=== PATIENT | female | born 1985 | race Two or more races ===

== ENCOUNTER → 2017-02-25 | Emergency (ER) | payer OTHER ==
[~2017-02-25] MED LIST: ACETAMINOPHEN 1000 MG/100 ML VIAL (NON FORMULARY) IVPB ONE; ACETAMINOPHEN INJECTION 100 ML IVPB ONE; DEXAMETHASONE SOD PHOSPHATE 10 MG/1 ML VIAL IVPUSH ONE; DEXAMETHASONE SOD PHOSPHATE 10 MG/1 ML VIAL ONE; SODIUM CHLORIDE 0.9% 1000 ML INFUS.BAG IV ONE
[2017-02-25 20:54] VITALS: BP 128/66; PULSE 74; TEMP 98.1; BMI 32.1
[2017-02-25 21:23] LABS: URINE APPEARANCE CLEAR; URINE BILIRUBIN NEGATIVE (NEGATIVE); URINE BLOOD NEGATIVE (NEGATIVE); URINE COLOR LTYELLOW; URINE GLUCOSE (UA) NEGATIVE (NEGATIVE); URINE KETONE NEGATIVE (NEGATIVE); URINE LEUK ESTERASE NEGATIVE (NEGATIVE); URINE NITRITE NEGATIVE (NEGATIVE); URINE PROTEIN NEGATIVE (NEGATIVE); URINE UROBILINOGEN NEGATIVE E.U./dl (0.2-1.0)
[2017-02-25 22:35] LABS: BASOPHIL 0.7 % (0-2.0); EOSINOPHIL 3.4 % (0-4.5); MCH 25.6 pg (25.7-33.7); MCHC 32.6 g/dl (32.0-36.0); MEAN CELL VOLUME 78.6 fl (80-96); MEAN PLT VOLUME 9.1 fl (7.5-11.1); NEUTROPHILS 60.2 % (42.8-82.8); PLATELET COUNT 207 K/MM3 (134-434); WHITE BLOOD COUNT 10.4 K/mm3 (4.0-10.0)
[2017-02-25 22:59] LABS: ALBUMIN 3.6 g/dl (3.4-5.0); ANION GAP 8 (8-16); BILIRUBIN,TOTAL 0.3 mg/dL (0.2-1.0); CALCIUM 9.1 mg/dL (8.5-10.1); CO2 25 mmol/L (21-32); CREATININE 0.7 mg/dL (0.55-1.02); GLUCOSE,RANDOM 101 mg/dL (74-106); SGOT/AST 21 U/L (15-37); SGPT/ALT 30 U/L (12-78); TOT PROT 7.1 g/dl (6.4-8.2)
[2017-02-25 23:00] LABS: ALK PHOS 96 U/L (45-117)
--- NOTE | 2017-02-26 02:37 | PDOC ---
History of Present Illness - General Chief Complaint: Pain, Acute Stated Complaint: PAIN IN STOMACH Time Seen by Provider: 02/25/17 21:33 - History of Present Illness Initial Comments: 02/26/17 03:31 CHIEF COMPLAINT: abd pain HISTORY OF PRESENT ILLNESS: 31 yo F with no PMH presents to ED with RLQ abdominal pain x 2 months. She reports going to [facility] where she had a negative CT scan but that the doctor told her "sometimes the CT can miss an appendicitis." She was given Tylenol with codeine for her pain but when she took it today she broke out into a rash. She denies any difficulty breathing or any swelling of the mouth, lips, throat, or tongue. Patient states she vomited twice yesterday along with her abdominal pain. No recent travel or sick contacts. PAST MEDICAL HISTORY: Denies past medical history FAMILY HISTORY: Denies SOCIAL HISTORY: Current smoker, 10 cigarettes daily. Denies alcohol, illicit drug use. SURGICAL HISTORY: 3 c-sections ALLERGIES: codeine REVIEW OF SYSTEMS General/Constitutional: Denies fever or chills. Denies weakness, weight change. HEENT: Denies change in vision. Denies ear pain or discharge. Denies sore throat. Cardiovascular: Denies chest pain or shortness of breath. Respiratory: Denies cough, wheezing, or hemoptysis. Gastrointestinal: RLQ abodminal pain x 2 months. Denies nausea, vomiting, diarrhea or constipation. Denies rectal bleeding. Genitourinary: Denies dysuria, frequency, or change in urination. Musculoskeletal: Denies joint or muscle swelling or pain. Denies neck or back pain. Skin and breasts: Denies rash or easy bruising. Neurologic: Denies headache, vertigo, loss of consciousness, or loss of sensation. PHYSICAL EXAM General Appearance: Well-appearing, appropriately dressed. No apparent distress. HEENT: EOMI, PERRLA, normal ENT inspection, normal voice, TMs normal, pharynx normal. No conjunctival pallor. No photophobia, scleral icterus. Respiratory/Chest: Lungs CTAB. Cardiovascular: RRR. S1, S2. Gastrointestinal/Abdominal: Marked tenderness and guarding to RLQ at McBurney's point. Normal bowel sounds. Abdomen soft, non-distended. No organomegaly, pulsatile mass, guarding, hernia, hepatomegaly, splenomegaly. Lymphatic: No adenopathy, tenderness. Musculoskeletal/Extremities: Normal inspection. FROM of all extremities, normal capillary refill. Pelvis Stable. No CVA tenderness. No tenderness to extremities, pedal edema, swelling, erythema or deformity. Integumentary: Appropriate color, dry, warm. 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 Fully oriented, alert. Appropriate mood/affect. Motor strength 5/5. No appreciable EOM palsy, facial droop or sensory deficit. Past History - Past Medical History Allergies/Adverse Reactions: Allergies Allergy/AdvReac Type Severity Reaction Status Date / Time codeine Allergy Verified 02/25/17 20:45 Home Medications: Ambulatory Orders NK [No Known Home Medication] 02/25/17 Suicide Attempt (Hx): No - Psycho/Social/Smoking Cessation Hx Suicidal Ideation: No Smoking History: Former smoker Have you smoked in the past 12 months: No Number of Cigarettes Smoked Daily: 10 Information on smoking cessation initiated: No 'Breaking Loose' booklet given: 04/25/15 Hx Alcohol Use: No Drug/Substance Use Hx: No *Physical Exam - Vital Signs Last Vital Signs Temp Pulse Resp BP Pulse Ox 98.1 F 74 18 128/66 100 02/25/17 20:48 02/25/17 20:48 02/25/17 20:48 02/25/17 20:48 02/25/17 20:48 ED Treatment Course - LABORATORY CBC & Chemistry Diagram: 02/25/17 22:24 02/25/17 22:24 - ADDITIONAL ORDERS Additional order review: Laboratory Results 02/25/17 02/25/17 22:24 20:45 Sodium 141 Potassium 4.3 Chloride 108 H Carbon Dioxide 25 Anion Gap 8 BUN 15 D Creatinine 0.7 D Creat Clearance w eGFR > 60 Random Glucose 101 D Calcium 9.1 Total Bilirubin 0.3 D AST 21 ALT 30 Alkaline Phosphatase 96 Total Protein 7.1 Albumin 3.6 Lipase 106 Urine Color Ltyellow Urine Appearance Clear Urine pH 6.0 Ur Specific [place] 1.025 Urine Protein Negative Urine Glucose (UA) Negative Urine Ketones Negative Urine Blood Negative Urine Nitrite Negative Urine Bilirubin Negative Urine Urobilinogen Negative Ur Leukocyte Esterase Negative Urine HCG, Qual Negative 02/25/17 22:24 RBC 5.52 H MCV 78.6 L MCHC 32.6 RDW 14.0 MPV 9.1 Neutrophils % 60.2 Lymphocytes % 28.5 D Monocytes % 7.2 Eosinophils % 3.4 Basophils % 0.7 - RADIOLOGY Radiology Studies Ordered: Category Date Time Status ABDOMEN & PELVIS CT WITH CONTR [CT] Stat CT Scan 02/26/17 00:03 Taken TRANSVAGINAL ULTRASOUND US [US] Stat Ultrasound 02/26/17 01:17 Taken - Medications Given in the ED: ED Medications Discontinued Medications Generic Name Dose Route Start Last Admin Trade Name Marty PRN Reason Stop Dose Admin Acetaminophen 1,000 mg 02/25/17 22:29 02/25/17 22:52 Ofirmev Injection - IVPB 02/25/17 22:30 1,000 mg ONCE ONE Administration Dexamethasone Sodium Phosphate 10 mg 02/25/17 21:57 02/25/17 22:24 Decadron Injection - IVPUSH 02/25/17 21:58 10 mg ONCE ONE Administration Diphenhydramine HCl 25 mg 02/25/17 21:57 02/25/17 22:24 Benadryl Injection - IVPB 02/25/17 21:58 25 mg ONCE ONE Administration Sodium Chloride 1,000 ml 02/25/17 21:44 02/25/17 22:23 Normal Saline - IV 02/25/17 21:45 1,000 ml ONCE ONE Administration Medical Decision Making - Medical Decision Making 02/26/17 05:12 31 yo F with no PMH presents to ED with RLQ abdominal pain x 2 months. -CBC, CMP, lipase, UA, UCx, Uprg -A&P CT with oral contrast -Tylenol IV Patient reports that after receiving Tylenol IVPB her pain is much better. Ct negative for acute pathology. -Transvaginal u/s, r/o ovarian torsion U/S negative. Will discharge to home with referral for GI and OBGYN. Advised patient of signs and symptoms for return to ER; patient verbalized understanding and agrees to plan. 02/26/17 05:13 *DC/Admit/Observation/Transfer Diagnosis at time of Disposition: Right lower quadrant abdominal pain - Discharge Dispostion Disposition: HOME Condition at time of disposition: Good Admit: No - Referrals Referrals: Rene Lopez MD [Staff Physician] - Elham Zamorano MD [Staff Physician] - - Patient Instructions Printed Discharge Instructions: DI for Abdominal Pain-Adult Additional Instructions: As discussed, you must follow up with the reporting analyst and OBGYN by the end of this week for further evaluation of your abdominal pain. Your CT scan and transvaginal ultrasound were negative today. If you experience any fever, persistent vomiting, diarrhea, worsening abdominal pain, chest pain, or any new or worsening symptoms, please return to the ER.
== END | disposition home or self-care (01) ==
LOC: JER 20:37
PROC: 3E033NZ Introduction of Analgesics, Hypnotics, Sedatives into Peripheral Vein, Percutaneous Approach (ICD-10-PCS; principal; 2017-02-25)
PROC: 3E0333Z Introduction of Anti-inflammatory into Peripheral Vein, Percutaneous Approach (ICD-10-PCS; 2017-02-25)
PROC: 3E033GC Introduction of Other Therapeutic Substance into Peripheral Vein, Percutaneous Approach (ICD-10-PCS; 2017-02-25)
DX: R10.31 Right lower quadrant pain (principal)
CPT/HCPCS: 36415; 74177-TC; 76830-TC; 80053; 81003; 83690; 84703; 85025; 87086; 99282-25

== ENCOUNTER 2017-09-10 21:52 | Emergency (ER) | payer OTHER ==
[2017-09-10] MEDS ORDERED: SODIUM CHLORIDE 1,000 ML IV STA (22:08)
[2017-09-10 22:14] VITALS: BP 118/80; PULSE 90; TEMP 98.3; BMI 32.1
[2017-09-10 22:19] LABS: URINE APPEARANCE SLCLOUDY; URINE BILIRUBIN NEGATIVE (NEGATIVE); URINE BLOOD NEGATIVE (NEGATIVE); URINE COLOR YELLOW; URINE GLUCOSE (UA) NEGATIVE (NEGATIVE); URINE KETONE NEGATIVE (NEGATIVE); URINE LEUK ESTERASE NEGATIVE (NEGATIVE); URINE NITRITE NEGATIVE (NEGATIVE); URINE PROTEIN NEGATIVE (NEGATIVE)
[2017-09-10 22:36] LABS: BASO # 0.1 #; BASO % 0.5 % (0-2.0); EOS # 0.3 #; EOS % 2.4 % (0-4.5); LYMPH # 3.5; MCH 26.2 pg (25.7-33.7); MCHC 32.9 g/dl (32.0-36.0); MEAN CELL VOLUME 79.6 fl (80-96); MEAN PLT VOLUME 9.4 fl (7.5-11.1); MONO # 0.9 #; NEUT # 8.1 #; NEUT % 62.9 % (42.8-82.8); PLATELET COUNT 222 K/MM3 (134-434); WHITE BLOOD COUNT 12.9 K/mm3 (4.0-10.0)
[2017-09-10 23:02] LABS: ALK PHOS 107 U/L (45-117); ANION GAP 6 (8-16); BILIRUBIN,TOTAL 0.3 mg/dL (0.2-1.0); CALCIUM 9.3 mg/dL (8.5-10.1); CO2 30 mmol/L (21-32); CREATININE 0.7 mg/dL (0.55-1.02); GLUCOSE,RANDOM 111 mg/dL (74-106); SGOT/AST 18 U/L (15-37); SGPT/ALT 35 U/L (12-78); TOT PROT 7.8 g/dl (6.4-8.2)
--- NOTE | 2017-09-10 23:15 | PDOC ---
History of Present Illness - General Chief Complaint: Pain, Acute Stated Complaint: ABDOMINAL/BACK PAIN Time Seen by Provider: 09/10/17 22:08 History Source: Patient Exam Limitations: No Limitations - History of Present Illness Travel History: No Initial Comments: 09/10/17 23:52 32-year-old female presents to the emergency department complaining of right lower quadrant abdominal discomfort. Pain is described as 7/10 sharp nonradiating intermittent discomfort without fever, chills, nausea/vomiting, chest pain, shortness of breath, flank pains, urinary symptoms: Frequency/ urgency/hesitancy, hematuria. The pain is exacerbated on touch and there are no alleviating factors. Patient was seen in the emergency department in February 2017 for similar symptoms. Patient had a CAT scan of her abdomen and pelvis with by mouth and IV contrast to rule out appendicitis. Her CAT scan results it is normal and patient was sent home to follow-up with the GI physician. Patient returned approximately one week after her initial visit back in February,. Again she has similar symptoms, she had a pelvic ultrasound to rule out ovarian torsion which was also normal. Timing/Duration: reports: intermittent Quality: reports: mild, sharpness Abdominal Pain Onset Location: reports: RLQ Past History - Past Medical History Allergies/Adverse Reactions: Allergies Allergy/AdvReac Type Severity Reaction Status Date / Time codeine Allergy Verified 09/10/17 22:05 Home Medications: Ambulatory Orders NK [No Known Home Medication] 02/25/17 COPD: No - Suicide/Smoking/Psychosocial Hx Smoking History: Former smoker Have you smoked in the past 12 months: No Number of Cigarettes Smoked Daily: 10 Information on smoking cessation initiated: No 'Breaking Loose' booklet given: 04/25/15 Hx Alcohol Use: No Drug/Substance Use Hx: No Review of Systems - Review of Systems Able to Perform ROS?: Yes Comments:: 09/10/17 23:14 CONSTITUTIONAL: Absent: fever, chills, diaphoresis, generalized weakness, malaise, loss of appetite HEENT: Absent: rhinorrhea, nasal congestion, throat pain, throat swelling, difficulty swallowing, mouth swelling, ear pain, eye pain, visual Changes CARDIOVASCULAR: Absent: chest pain, loss of consciousness, palpitations, irregular heart rate, peripheral edema RESPIRATORY: Absent: cough, shortness of breath, dyspnea with exertion, orthopnea, wheezing, stridor, hemoptysis GASTROINTESTINAL: +RLQ pain Absent: abdominal distension, nausea, vomiting, diarrhea, constipation, melena , hematochezia GENITOURINARY: Absent: dysuria, frequency, urgency, hesitancy, hematuria, flank pain, genital pain MUSCULOSKELETAL: Absent: myalgia, arthralgia, joint swelling SKIN: Absent: rash, itching, pallor HEMATOLOGIC/IMMUNOLOGIC: Absent: easy bleeding, easy bruising, lymphadenopathy, frequent infections ENDOCRINE: Absent: unexplained weight gain, unexplained weight loss, heat intolerance, cold intolerance NEUROLOGIC: Absent: headache, focal weakness or paresthesias, dizziness, unsteady gait, seizure, mental status changes, bladder or bowel incontinence Is the patient limited Lao proficient: No *Physical Exam - Vital Signs Last Vital Signs Temp Pulse Resp BP Pulse Ox 98.3 F 90 18 118/80 100 09/10/17 22:07 09/10/17 22:07 09/10/17 22:07 09/10/17 22:07 09/10/17 22:07 - Physical Exam Comments: 09/10/17 23:14 GENERAL: Well developed, well nourished. Awake and alert. No acute distress. HEENT: Normocephalic, atraumatic. PERRLA, EOMI. No conjunctival pallor. Sclera are non- icteric. Moist mucous membranes. Oropharynx is clear. NECK: Supple. Full ROM. No JVD. Carotid pulses 2+ and symmetric, without bruits. No thyromegaly. No lymphadenopathy. CARDIOVASCULAR: Regular rate and rhythm. No murmurs, rubs, or gallops. Distal pulses are 2+ and symmetric. PULMONARY: No evidence of respiratory distress. Lungs clear to auscultation bilaterally. No wheezing, rales or rhonchi. ABDOMINAL: RLQ pain on palp *+Mcburneys point* Soft. Non-distended. No rebound or guarding. No organomegaly. Normoactive bowel sounds. MUSCULOSKELETAL Normal range of motion at all joints. No bony deformities or tenderness. No CVA tenderness. EXTREMITIES: No cyanosis. No clubbing. No edema. No calf tenderness. SKIN: Warm and dry. Normal capillary refill. No rashes. No jaundice. NEUROLOGICAL: Alert, awake, appropriate. Cranial nerves 2-12 intact. No deficits to light touch and temperature in face, upper extremities and lower extremities. No motor deficits in the in face, upper extremities and lower extremities. Normoreflexic in the upper and lower extremities. Normal speech. Toes are down- going bilaterally. Gait is normal without ataxia. ED Treatment Course - LABORATORY CBC & Chemistry Diagram: 09/10/17 22:16 09/10/17 22:16 - ADDITIONAL ORDERS Additional order review: Laboratory Results 09/10/17 09/10/17 22:16 22:10 Sodium 140 Potassium 3.7 Chloride 104 Carbon Dioxide 30 Anion Gap 6 L BUN 11 D Creatinine 0.7 Creat Clearance w eGFR > 60 Random Glucose 111 H Calcium 9.3 Total Bilirubin 0.3 AST 18 ALT 35 Alkaline Phosphatase 107 Total Protein 7.8 Albumin 4.0 Urine Color Yellow Urine Appearance Slcloudy Urine pH 5.0 Ur Specific [place] 1.030 Urine Protein Negative Urine Glucose (UA) Negative Urine Ketones Negative Urine Blood Negative Urine Nitrite Negative Urine Bilirubin Negative Urine Urobilinogen 2.0 H Urine HCG, Qual Negative 09/10/17 22:16 RBC 6.08 H MCV 79.6 L MCHC 32.9 RDW 14.0 MPV 9.4 Neutrophils % 62.9 Lymphocytes % 27.5 Monocytes % 6.7 Eosinophils % 2.4 Basophils % 0.5 - RADIOLOGY Radiology Studies Ordered: Category Date Time Status ABDOMEN & PELVIS CT WITH CONTR [CT] Stat CT Scan 09/10/17 22:07 Ordered Radiograph Interpretation: 09/10/17 23:54 CT scan abd/pelvis po/iv contrast: Preliminary report shows lung bases are clear. The visualized cardiac chambers are normal size and configuration. Normal liver , gallbladder, pancreas, spleen, adrenal glands and kidneys. The stomach and abdominal small and large bowel are normal. There is no aortic aneurysm. There is no significant retroperitoneal lymphadenopathy. The pelvic small and large bowel are normal. Appendix is normal. The uterus and adnexal structures are normal. Urinary bladder is unremarkable. There is no pelvic free fluid. No discrete pelvic lymphadenopathy is identified. No localizing signs for acute pathology. - Medications Given in the ED: ED Medications Discontinued Medications Generic Name Dose Route Start Last Admin Trade Name Freq PRN Reason Stop Dose Admin Sodium Chloride 1,000 mls @ 1,000 mls/hr 09/10/17 22:08 09/10/17 22:43 Normal Saline - IV 09/10/17 23:07 1,000 mls/hr ASDIR STA Administration Progress Note - Progress Note Progress Note: 0125hrs: Pt adamantly refuses an Ultrasound. States will follow up with GI/Dr. Kauffman. Pt informed of possible ovarian torsion which can cause / future fertility problems, severe ain, infection *DC/Admit/Observation/Transfer Diagnosis at time of Disposition: Abdominal pain Qualifiers: Abdominal location: right lower quadrant Qualified Code(s): R10.31 - Right lower quadrant pain - Discharge Dispostion Disposition: HOME Condition at time of disposition: Stable Admit: No - Referrals Referrals: STAFF,NOT ON [Primary Care Provider] - Christiano Kauffman MD [Staff Physician] - - Patient Instructions Printed Discharge Instructions: DI for Abdominal Pain-Adult Additional Instructions: MUST SEE A SYSTEMS ANALYST ENGINEER Dr. Kauffman/[phone] Return to the ER for severe/persistent/worsening symptoms - Post Discharge Activity Forms/Work/School Notes: Back to Work
--- NOTE | 2017-09-10 23:30 | PDOC ---
*Physical Exam - Vital Signs Last Vital Signs Temp Pulse Resp BP Pulse Ox 98.3 F 90 18 118/80 100 09/10/17 22:07 09/10/17 22:07 09/10/17 22:07 09/10/17 22:07 09/10/17 22:07 ED Treatment Course - LABORATORY CBC & Chemistry Diagram: 09/10/17 22:16 09/10/17 22:16 - ADDITIONAL ORDERS Additional order review: Laboratory Results 09/10/17 09/10/17 22:16 22:10 Sodium 140 Potassium 3.7 Chloride 104 Carbon Dioxide 30 Anion Gap 6 L BUN 11 D Creatinine 0.7 Creat Clearance w eGFR > 60 Random Glucose 111 H Calcium 9.3 Total Bilirubin 0.3 AST 18 ALT 35 Alkaline Phosphatase 107 Total Protein 7.8 Albumin 4.0 Urine Color Yellow Urine Appearance Slcloudy Urine pH 5.0 Ur Specific [place] 1.030 Urine Protein Negative Urine Glucose (UA) Negative Urine Ketones Negative Urine Blood Negative Urine Nitrite Negative Urine Bilirubin Negative Urine Urobilinogen 2.0 H Urine HCG, Qual Negative 09/10/17 22:16 RBC 6.08 H MCV 79.6 L MCHC 32.9 RDW 14.0 MPV 9.4 Neutrophils % 62.9 Lymphocytes % 27.5 Monocytes % 6.7 Eosinophils % 2.4 Basophils % 0.5 - Medications Given in the ED: ED Medications Discontinued Medications Generic Name Dose Route Start Last Admin Trade Name Freq PRN Reason Stop Dose Admin Sodium Chloride 1,000 mls @ 1,000 mls/hr 09/10/17 22:08 09/10/17 22:43 Normal Saline - IV 09/10/17 23:07 1,000 mls/hr ASDIR STA Administration Medical Decision Making - Medical Decision Making 09/10/17 23:30 agree with care from GIBSON Iyer *DC/Admit/Observation/Transfer - Referrals Referrals: STAFF,NOT ON [Primary Care Provider] - - Patient Instructions - Post Discharge Activity
[2017-09-11 14:48] LABS: URINE LEUK ESTERASE Negative (NEGATIVE)
== END 2017-09-11 01:40 | disposition home or self-care (01) ==
LOC: JER 21:52
PROC: 3E0337Z Introduction of Electrolytic and Water Balance Substance into Peripheral Vein, Percutaneous Approach (ICD-10-PCS; principal; 2017-09-10)
DX: R10.31 Right lower quadrant pain (principal)
CPT/HCPCS: 36415; 74177-TC; 80053; 81003; 84703; 85025; 99283-25

== ENCOUNTER 2019-02-05 14:45 | Emergency (ER) | payer OTHER | END 2019-02-05 18:00 | disposition home or self-care (01) | LOC: JER 14:45 ==

== ENCOUNTER 2019-10-15 20:12 | Emergency (ER) | payer OTHER ==
[2019-10-15 20:27] VITALS: TEMP 98.3; BMI 28.3
[2019-10-15] MEDS ORDERED: KETOROLAC TROMETHAMINE 60 MG/2 ML VIAL IM ONE (22:25)
--- NOTE | 2019-10-15 22:33 | PDOC ---
History of Present Illness - General History Source: Patient Exam Limitations: No Limitations - History of Present Illness Initial Comments: 10/15/19 22:29 Patient is a 34-year-old female with history of x3 complaining of right lower extremity pain. 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 States her pain is 10/10 throbbing and unable to ambulate on that leg. LMP 09/18/2019 PMHX: as above PSOCHX: (+) cig 10/day ALL: codine hives GENERAL/CONSTITUTIONAL: [No fever or chills. No weakness. No weight change.] HEAD, EYES, EARS, NOSE AND THROAT: [No change in vision. No ear pain or discharge. No sore throat.] CARDIOVASCULAR: [No chest pain or shortness of breath.] RESPIRATORY: [No cough, wheezing, or hemoptysis.] GASTROINTESTINAL: [No nausea, vomiting, diarrhea or constipation. No rectal bleeding.] GENITOURINARY: [No dysuria, frequency, or change in urination.] MUSCULOSKELETAL: [(+) joint or muscle swelling or pain. No neck or back pain.] SKIN AND BREASTS: [No rash or easy bruising.] NEUROLOGIC: [No headache, vertigo, loss of consciousness, or loss of sensation.] PSYCHIATRIC: [No depression or anxiety.] ENDOCRINE: [No increased thirst. No abnormal weight change.] HEMATOLOGIC/LYMPHATIC: [No anemia, easy bleeding, or history of blood clots.] ALLERGIC/IMMUNOLOGIC: [No hives or skin allergy. No latex allergy.] GENERAL: [The patient is awake, alert, and fully oriented, in moderate acute distress.] HEAD: [Normal with no signs of trauma.] EYES: [Pupils equal, round and reactive to light, extraocular movements intact, sclera anicteric, conjunctiva clear.] ENT: [Ears normal, nares patent, oropharynx clear without exudates. Moist mucous membranes.] NECK: [Normal range of motion, supple without lymphadenopathy, JVD, or masses.] LUNGS: [Breath sounds equal, clear to auscultation bilaterally. No wheezes, and no crackles.] HEART: [Regular rate and rhythm, normal S1 and S2 without murmur, rub.] ABDOMEN: [Soft, nontender, normoactive bowel sounds. No guarding, no rebound. No masses.] EXTREMITIES: [Decreased range of motion, mild swelling over the lateral malleolus right lower extremity, tenderness from the knees to the toes, no clubbing or cyanosis. No cords, erythema, or tenderness.] NEUROLOGICAL: [Cranial nerves II through XII grossly intact. Normal speech, normal gait.] PSYCH: [Normal mood, normal affect.] SKIN: [Warm, Dry, normal turgor, no rashes or lesions noted.] <Genevieve Wallace - Last Filed: 10/16/19 00:05> <Galina Burrows - Last Filed: 10/16/19 00:55> - General Chief Complaint: Injury Stated Complaint: RT ANKLE INJURY Time Seen by Provider: 10/15/19 22:20 Past History - Past Medical History COPD: No - Psycho Social/Smoking Cessation Hx Smoking History: Current every day smoker Have you smoked in the past 12 months: No Number of Cigarettes Smoked Daily: 10 Information on smoking cessation initiated: No 'Breaking Loose' booklet given: 04/25/15 Hx Alcohol Use: No Drug/Substance Use Hx: No <Genevieve Wallace - Last Filed: 10/16/19 00:05> <Galina Burrows - Last Filed: 10/16/19 00:55> - Past Medical History Allergies/Adverse Reactions: Allergies Allergy/AdvReac Type Severity Reaction Status Date / Time codeine Allergy Verified 02/05/19 15:26 Home Medications: Ambulatory Orders Cyclobenzaprine HCl [Flexeril 10 mg] 10 mg PO TID #20 tablet 10/15/19 Ibuprofen [Motrin -] 600 mg PO QID #28 tablet 10/15/19 *Physical Exam - Vital Signs Last Vital Signs Temp Pulse Resp BP Pulse Ox 98.3 F 77 19 112/79 99 10/15/19 20:23 10/15/19 20:23 10/15/19 20:23 10/15/19 20:23 10/15/19 20:23 <Genevieve Wallace - Last Filed: 10/16/19 00:05> - Vital Signs Last Vital Signs Temp Pulse Resp BP Pulse Ox 98.3 F 74 18 109/66 99 10/16/19 00:18 10/16/19 00:18 10/16/19 00:18 10/16/19 00:18 10/16/19 00:18 <Galina Burrows - Last Filed: 10/16/19 00:55> ED Treatment Course - RADIOLOGY Radiology Studies Ordered: Category Date Time Status ANKLE & FOOT-RIGHT* [RAD] Stat Radiology 10/15/19 22:23 Ordered KNEE 2 POS-RIGHT [RAD] Stat Radiology 10/15/19 22:23 Ordered LEG TIB/FIB-RIGHT [RAD] Stat Radiology 10/15/19 22:26 Ordered <Genevieve Wallace - Last Filed: 10/16/19 00:05> - Medications Given in the ED: ED Medications Discontinued Medications Generic Name Dose Route Start Last Admin Trade Name Freq PRN Reason Stop Dose Admin Ketorolac Tromethamine 60 mg 10/15/19 22:25 10/15/19 23:03 Toradol Injection - IM 10/15/19 22:26 60 mg ONCE ONE Administration <Galina Burrows - Last Filed: 10/16/19 00:55> Medical Decision Making - Medical Decision Making 10/15/19 22:29 Patient is a 34-year-old female with history of x3 complaining of right lower extremity pain. 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 States her pain is 10/10 throbbing and unable to ambulate on that leg. Symptoms consistent with sprain knee, ankle, however will rule out fractures. X-ray knee, tib-fib, ankle/foot Toradol 60 mg IM for pain Reassess Crutches, Kemal bandage. 10/15/19 23:20 X-rays reviewed no acute fractures noted Will place patient with crutches and Moore dressing. I discussed the physical exam findings, ancillary test results and final diagnoses with the patient. I answered all of the patient's questions. The patient was satisfied with the care received and felt comfortable with the discharge plan and treatment plan. The Patient agrees to follow up with the primary care physician within 24-72 hours. <Genevieve Wallace - Last Filed: 10/16/19 00:05> - Medical Decision Making I reviewed the case with the mid-level practitioner and agree with the mid- level practitioner's assessment, diagnosis and disposition. <Galina Burrows - Last Filed: 10/16/19 00:55> Discharge - Discharge Information Problems reviewed: Yes <Genevieve Wallace - Last Filed: 10/16/19 00:05> <Galina Burrows - Last Filed: 10/16/19 00:55> - Discharge Information Clinical Impression/Diagnosis: Knee sprain Qualifiers: Encounter type: initial encounter Involved ligament of knee: unspecified ligament Laterality: right Qualified Code(s): S83.91XA - Sprain of unspecified site of right knee, initial encounter Ankle sprain Qualifiers: Encounter type: initial encounter Involved ligament of ankle: unspecified ligament Laterality: right Qualified Code(s): S93.401A - Sprain of unspecified ligament of right ankle, initial encounter Condition: Stable Disposition: HOME - Additional Discharge Information Prescriptions: Cyclobenzaprine HCl [Flexeril 10 mg] 10 mg PO TID #20 tablet Ibuprofen [Motrin -] 600 mg PO QID #28 tablet - Follow up/Referral Referrals: Naeem Vang MD [Staff Physician] - - Patient Discharge Instructions Patient Printed Discharge Instructions: DI for Knee Sprain, DI for Ankle Sprain Additional Instructions: Your Discharge Instructions: You must call primary care physician within 24 hours to arrange follow-up. Return to the Emergency Department with any new, persistent or worsening symptoms, for fever, chills, SOB, dizziness or any other concerning changes that may occur. Continue Tylenol every 4 hours and Motrin every 6 hours for pain. Elevate the ankle above the level of the heart - Post Discharge Activity Work/Back to School Note: Back to Work
[2019-10-15] MEDS ORDERED: KETOROLAC TROMETHAMINE 60 MG/2 ML VIAL ONE (22:43)
[2019-10-16 00:20] VITALS: BP 109/66; PULSE 74
== END 2019-10-16 00:20 | disposition home or self-care (01) ==
LOC: JER 20:12 → JERFT 20:12 → JER 10-16 00:20
PROC: 3E0233Z Introduction of Anti-inflammatory into Muscle, Percutaneous Approach (ICD-10-PCS; principal; 2019-10-15)
PROC: 2W3QX1Z Immobilization of Right Lower Leg using Splint (ICD-10-PCS; 2019-10-15)
DX: S83.8X1A Sprain of other specified parts of right knee, initial encounter (principal); S93.491A Sprain of other ligament of right ankle, initial encounter; V68.4XXA Person boarding or alighting a heavy transport vehicle injured in noncollision transport accident, initial encounter; Y92.414 Local residential or business street as the place of occurrence of the external cause; Y93.89 Activity, other specified; Y99.0 Civilian activity done for income or pay; Z88.5 Allergy status to narcotic agent; F17.210 Nicotine dependence, cigarettes, uncomplicated
CPT/HCPCS: 29515; 73560-TC-RT-FY; 73590-TC-RT-FY; 73610-TC-RT-FY; 73630-TC-RT-FY; 96372; 99283-25